=== PATIENT | female | born 2000 | race Caucasian/White ===

== ENCOUNTER 2025-05-01 07:57 | Outpatient (CLI) | payer OTHER | END 2025-05-01 07:58 | disposition home or self-care (01) | LOC: CSHULT 07:57 | PROVIDERS: ATTEND Surgery | DX: N63.42 Unspecified lump in left breast, subareolar (principal) ==

== ENCOUNTER → 2025-05-02 | Day surgery (SDC) | payer OTHER | LOC: CSHULT 10:35 | PROVIDERS: ATTEND Surgery | DX: N63.42 Unspecified lump in left breast, subareolar (principal) | CPT/HCPCS: 19083; 88305; 88342; A4648; G0279 ==